=== PATIENT | male | born 1980 | race African-American/Black ===

== ENCOUNTER 2018-02-03 22:41 | Emergency (ER) | payer OTHER ==
[~2018-02-03] VITALS: Ht 172.7 cm; Wt 78.9 kg
[2018-02-03 23:09] VITALS: BP 121/83
[2018-02-03] MEDS ORDERED: Dicyclomine HCl 10mg/5ml oral soln ORAL ONE (23:15)
[2018-02-03] MEDS ORDERED: Lidocaine 2% Visc 15ml soln ORAL ONE (23:15)
[2018-02-03 23:30] LABS: BASOPHILS % (AUTO) 0.6 % (0.0-2.0); EOSINOPHILS % (AUTO) 0.8 % (0.0-3.0); HEMATOCRIT 47.8 % (42.0-52.0); HEMOGLOBIN 16.5 G/DL (14.2-18.0); LYMPHOCYTES % (AUTO) 27.7 % (20.0-45.0); MEAN CORPUSCULAR VOLUME 82 FL (80-99); MONOCYTES % (AUTO) 16.9 % (1.0-10.0); PLATELET COUNT 169 K/UL (150-450); RED BLOOD COUNT 5.82 M/UL (4.70-6.10); RED CELL DISTRIBUTION WIDTH 10.9 % (11.6-14.8); WHITE BLOOD COUNT 4.4 K/UL (4.8-10.8)
[2018-02-03 23:31] LABS: APPEARANCE,URINE CLEAR; BILIRUBIN, URINE NEGATIVE (NEGATIVE); GLUCOSE, URINE (UA) NEGATIVE (NEGATIVE); KETONES,URINE 3+ (NEGATIVE); LEUKOCYTE ESTERASE ,URINE NEGATIVE (NEGATIVE); NITRITE,URINE NEGATIVE (NEGATIVE); PH,URINE 6 (4.5-8.0); UROBILINOGEN,URINE 1 MG/DL (0.0-1.0)
[2018-02-03 23:44] LABS: ANION GAP 6 mmol/L (5-15); BLOOD UREA NITROGEN 17 mg/dL (7-18); CALCIUM 9.2 MG/DL (8.5-10.1); CARBON DIOXIDE 30 MMOL/L (21-32); CHLORIDE 101 MMOL/L (98-107); CREATININE 1.2 MG/DL (0.55-1.30); POTASSIUM 3.5 MMOL/L (3.5-5.1); SODIUM 137 MMOL/L (136-145)
[2018-02-03 23:45] LABS: COLOR,URINE YELLOW; PROTEIN,URINE NEGATIVE (NEGATIVE)
[2018-02-03 23:55] LABS: ALANINE AMINOTRANSFERASE 25 U/L (12-78); ALBUMIN 4.2 G/DL (3.4-5.0); ALBUMIN/GLOBULIN RATIO 1.1 (1.0-2.7); ALKALINE PHOSPHATASE 58 U/L (46-116); ASPARTATE AMINO TRANSFERASE 23 U/L (15-37); BILIRUBIN,TOTAL 1.2 MG/DL (0.2-1.0)
[2018-02-04] MEDS ORDERED: FLAGYL500 MG ORAL (00:04)
[2018-02-04 00:05] LABS: BILIRUBIN,DIRECT 0.2 MG/DL (0.0-0.3)
[2018-02-04 00:19] VITALS: BP 121/83
--- NOTE | 2018-02-04 00:19 | Emergency Room Report ---
History of Present Illness General Chief Complaint: Abdominal Pain Source: Patient Present Illness HPI Patient is a 37-year-old male who presented after increased dizziness as well as diarrhea. Patient recently been on amoxicillin for a root canal. Was having increased watery diarrhea. He denies any blood. He had not been vomiting. He reports having generalized abdominal discomfort. He had been having some fever. Allergies: Coded Allergies: No Known Allergies (Unverified , 02/03/18) Patient History Past Medical History: see triage record Reviewed Nursing Documentation: PMH: Agreed; PSxH: Agreed Nursing Documentation-PMH Past Medical History: No Stated History Review of Systems All Other Systems: negative except mentioned in HPI Physical Exam Vital Signs Date Time Temp Pulse Resp B/P (MAP) Pulse Ox O2 Delivery O2 Flow Rate FiO2 02/03/18 22:57 101.1 81 16 121/83 100 Room Air 101.1 Sp02 EP Interpretation: reviewed, normal General Appearance: normal inspection, well appearing, no apparent distress, alert, GCS 15, non-toxic Head: atraumatic ENT: normal ENT inspection, hearing grossly normal, normal voice Neck: normal inspection, full range of motion, supple, no bony tend Respiratory: normal inspection, lungs clear, normal breath sounds, no respiratory distress, no retraction, no wheezing Cardiovascular #1: regular rate, rhythm, no edema Gastrointestinal: normal inspection, normal bowel sounds, non tender, soft, no guarding, no hernia Genitourinary: no CVA tenderness Musculoskeletal: normal inspection, back normal, normal range of motion Neurologic: normal inspection, alert, oriented x3, responsive, circuit court clerk III-XII nml as tested, speech normal Psychiatric: normal inspection, judgement/insight normal, mood/affect normal Skin: normal inspection, normal color, no rash Medical Decision Making Diagnostic Impression: Primary Impression: Enteritis ER Course Patient presented for diarrhea and abdominal pain. Differential diagnosis included was not limited to Salmonella, Shigella, viral enteritis, C. difficile colitis. Because of complexity of patient's case laboratory testing and imaging studies were ordered. The patient was noted to have a normal white blood count. The patient was started on oral Flagyl for what presumably is C. difficile colitis. The patient was advised to use probiotic as well as Imodium as needed. The patient is advised to increase oral hydration. Patient is advised to recheck with his primary care physician in the next few days. The patient is advised to return if he began having worsening pain persistent vomiting bloody stools or other concerns Labs Test 02/03/18 23:20 White Blood Count 4.4 K/UL (4.8-10.8) Red Blood Count 5.82 M/UL (4.70-6.10) Hemoglobin 16.5 G/DL (14.2-18.0) Hematocrit 47.8 % (42.0-52.0) Mean Corpuscular Volume 82 FL (80-99) Mean Corpuscular Hemoglobin 28.3 PG (27.0-31.0) Mean Corpuscular Hemoglobin Concent 34.5 G/DL (32.0-36.0) Red Cell Distribution Width 10.9 % (11.6-14.8) Platelet Count 169 K/UL (150-450) Mean Platelet Volume 8.5 FL (6.5-10.1) Neutrophils (%) (Auto) 54.0 % (45.0-75.0) Lymphocytes (%) (Auto) 27.7 % (20.0-45.0) Monocytes (%) (Auto) 16.9 % (1.0-10.0) Eosinophils (%) (Auto) 0.8 % (0.0-3.0) Basophils (%) (Auto) 0.6 % (0.0-2.0) Urine Color Yellow Urine Appearance Clear Urine pH 6 (4.5-8.0) Urine Specific [place] 1.015 (1.005-1.035) Urine Protein Negative (NEGATIVE) Urine Glucose (UA) Negative (NEGATIVE) Urine Ketones 3+ (NEGATIVE) Urine Blood Negative (NEGATIVE) Urine Nitrite Negative (NEGATIVE) Urine Bilirubin Negative (NEGATIVE) Urine Urobilinogen 1 MG/DL (0.0-1.0) Urine Leukocyte Esterase Negative (NEGATIVE) Sodium Level 137 MMOL/L (136-145) Potassium Level 3.5 MMOL/L (3.5-5.1) Chloride Level 101 MMOL/L (98-107) Carbon Dioxide Level 30 MMOL/L (21-32) Anion Gap 6 mmol/L (5-15) Blood Urea Nitrogen 17 mg/dL (7-18) Creatinine 1.2 MG/DL (0.55-1.30) Estimat Glomerular Filtration Rate > 60 mL/min (>60) Glucose Level 82 MG/DL (74-106) Calcium Level 9.2 MG/DL (8.5-10.1) Total Bilirubin 1.2 MG/DL (0.2-1.0) Direct Bilirubin 0.2 MG/DL (0.0-0.3) Aspartate Amino Transf (AST/SGOT) 23 U/L (15-37) Alanine Aminotransferase (ALT/SGPT) 25 U/L (12-78) Alkaline Phosphatase 58 U/L (46-116) Total Protein 8.1 G/DL (6.4-8.2) Albumin 4.2 G/DL (3.4-5.0) Globulin 3.9 g/dL Albumin/Globulin Ratio 1.1 (1.0-2.7) Lipase 127 U/L (73-393) Last Vital Signs Date Time Temp Pulse Resp B/P (MAP) Pulse Ox O2 Delivery O2 Flow Rate FiO2 02/03/18 23:09 101.1 80 14 121/83 99 Room Air 101.1 Status: improved Disposition: HOME, SELF-CARE Condition: Stable Scripts Metronidazole* (FLAGYL*) 500 Mg Tablet 500 MG ORAL EVERY 8 HOURS, #30 TAB Prov: Rai Kenny MD 02/04/18 Patient Instructions: Clostridium Difficile Testing Rai Kenny MD Feb 04, 2018 00:19
== END 2018-02-04 00:20 | disposition home or self-care (01) ==
LOC: EMR 23:02
DX: K52.9 Noninfective gastroenteritis and colitis, unspecified (principal); R10.84 Generalized abdominal pain
CPT/HCPCS: 36415; 80053; 81003; 82248; 83690; 85025; 87040; 96375; 99284; S0028